=== PATIENT | male | born 1985 | race Caucasian/White ===

== ENCOUNTER → 2020-06-03 11:20 | Outpatient (BNVA) | payer SELFPAY | PROVIDERS: Visit Provider Family Medicine | DX: Z11.59 Encounter for screening for other viral diseases (principal) | CPT/HCPCS: 87635 ==

== ENCOUNTER → 2022-06-20 14:03 | Outpatient (BNVA) | payer OTHER, SELFPAY | PROVIDERS: Visit Provider Nurse Practitioner Family | DX: J02.9 Acute pharyngitis, unspecified (principal); R09.81 Nasal congestion | CPT/HCPCS: 87071; 87426; 87880 ==

== ENCOUNTER → 2022-12-08 14:41 | Outpatient (BNVA) | payer OTHER, SELFPAY | PROVIDERS: PCP Family Medicine; Visit Provider Emergency Medicine | DX: J02.9 Acute pharyngitis, unspecified (principal); H69.81 Other specified disorders of Eustachian tube, right ear | CPT/HCPCS: 87071; 87880 ==